=== PATIENT | female | born 1985 | race Caucasian/White ===

== ENCOUNTER 2025-05-02 12:02 | Emergency (ER) | payer BC, SELFPAY ==
[2025-05-02 12:04] VITALS: BP 131/77; BMI 41.7
[2025-05-02 12:21] LABS: % Basophils 1.5 % (0-2); % Eosinophils 2.4 % (0-6); % Immature Granulocytes 0.3 % (0-0.5); % Lymphocytes 44.7 % (20.5-51.1); % Monocytes 7.5 % (1.7-9.3); % Neutrophils 43.6 % (42.2-75.2); Absolute Basophils 0.2 10^3/uL (0-0.2); Absolute Eosinophils 0.3 10^3/uL (0-0.7); Absolute Lymphocytes 4.6 10^3/uL (1.2-3.4); Absolute Monocytes 0.8 10^3/uL (0.1-0.6); Absolute Neutrophils 4.5 10^3/uL (1.4-6.5); Hematocrit 40.8 % (37.0-47.0); Hemoglobin 13.2 g/dL (12.0-16.0); Mean Corp Hgb Conc. 32.4 g/dL (33.0-37.0); Mean Corpuscular Hgb 27.1 pg (27.0-31.0); Mean Corpuscular Volume 83.8 fL (81.0-99.0); Mean Platelet Volume 9.1 fL (7.4-10.4); Nucleated Red Blood Cells % 0 %; Platelet Count 429 10^3/uL (130-400); Red Blood Cell Count 4.87 10^6/uL (4.20-5.40); Red Cell Dist. Width 14.3 % (11.5-14.5); White Blood Cell Count 10.3 10^3/uL (4.8-10.8)
[2025-05-02 12:46] LABS: HCG, Serum Qualitative Screen Negative
[2025-05-02 12:56] LABS: ALT (SGPT) 18 U/L (0-35); AST (SGOT) 18 U/L (14-36); Albumin 4.4 g/dl (3.5-5.0); Alkaline Phosphatase 59 U/L (38-126); Blood Urea Nitrogen 13 mg/dl (7-17); Calcium 9.7 mg/dl (8.4-10.2); Carbon Dioxide 24 mmol/L (22-30); Chloride 107 mmol/L (98-107); Estimated Creatinine Clearance > 125 ml/min; Glucose 108 mg/dl (70-99); Lipase 90 U/L (23-300); Potassium 4.9 mmol/L (3.5-5.1); Sodium 139 mmol/L (135-145); Total Bilirubin 0.5 mg/dl (0.2-1.3); Total Protein 7.8 g/dl (6.3-8.2); eGFR > 60.00
[2025-05-02 13:00] VITALS: BP 113/65
[2025-05-02 13:05] LABS: Troponin I < 0.012 ng/ml
--- NOTE | 2025-05-02 13:21 | ED.GENMED ---
History of Present Illness
General
Chief Complaint: Chest Pain
Source: patient and spouse
Exam Limitations: none
Time Seen by Provider: 05/02/25 12:04
Nursing documentation reviewed up to this point in time: agreed with
History of Present Illness
History of Present Illness:
The patient is a 39-year-old female presenting with a headache and dizziness. She reports that the headache began earlier today and was accompanied by lightheadedness and a sense of faintness, impairing her ability to concentrate during a meeting.
She subsequently experienced nausea. The patient checked her blood pressure at home and noted it was elevated, which is unusual for her. She has a history of chest issues and has been evaluated by a document manager, with previous EKGs showing normal
results. She has not experienced headaches and dizziness with her previous symptoms. Her current symptoms include a mild headache with pressure but improved overall condition.
Per prior medical evaluation, cardiac issues have not been substantiated, and anxiety has been considered as a potential factor. The patient reports hydration practices are typically good, though she consumed slightly less water today. No new
medications or changes in current medications were reported. She occasionally uses ibuprofen for pain relief but did not specify the recent quantity.
Review of Systems
Review of Systems
Allergies reviewed?: Yes
All Other Systems: ROS reviewed and negative except as documented in HPI and ROS
Phy Exam
Physical Exam
Physical Exam:
GENERAL: Alert , in no apparent distress
EYE: pupils equal and reactive
NECK: Supple, no significant adenopathy.
ENT: o/p clr, mmm.
CARDIAC: Regular rate and rhythm .
LUNGS: Clear breath sounds bilaterally, no acute respiratory distress, no wheezes/rales/rhonchi
ABDOMEN: Soft, without focal tenderness, no r/g, no cvat
NEUROLOGICAL: Alert and oriented, no focal neuro deficits 5-5 upper and lower extremity strength normal sensation with palpating bilaterally normal finger-nose and [id number].
SKIN: Warm and dry, skin intact.
MUSCULOSKELETAL: No edema, well perfused.
PSYCH: Normal and appropriate interaction.
Scores
Heart Score for Chest Pain Patients
STEMI patient?: No
History: Slightly or Non-Suspicious
ECG: Normal
Age: </= 45 years
Risk Factors: 1 or 2 Risk Factors
Troponin: </= Normal Limit
Heart Score for Chest Pain Patients: 1
Heart Score Risk: 2.5% MACE over next 6 weeks
Course
Orders/Labs/Results
Orders:
Orders
05/02/25 12:07
EKG [Electrocardiogram (*1)] Urgent
Reason for Study: Chest Pain
05/02/25 12:08
EKG- Treatment ONCE
Test Result ONCE
05/02/25 12:13
Complete Blood Count/With Diff Urgent
Comprehensive Metabolic Panel Urgent
HCG, Serum Qualitative Screen Urgent
Lipase Urgent
Troponin I Urgent
05/02/25 13:00
CT Head W/o Iv Contrast Urgent
Comment:
Reason For Exam: SINGH, new, aphasia
Ketorolac [Toradol] 15 mg IV NOW STA
05/02/25 13:01
0.9% Sodium Chloride 1000 ml [Nss] 1,000 ml IV BOLUS
Abnormal Lab Results
05/02/25
12:13
MCHC 32.4 L g/dL
(33.0-37.0)
Plt Count 429 H 10^3/uL
(130-400)
Absolute Lymphs (auto) 4.6 H 10^3/uL
(1.2-3.4)
Absolute Monos (auto) 0.8 H 10^3/uL
(0.1-0.6)
Glucose 108 H mg/dl
(70-99)
05/02/25 12:13
05/02/25 12:13
Vital Signs
Initial and Last Documented VS:
Initial Vital Signs
Temp Pulse Resp BP Pulse Ox
98.2 F 84 16 131/77 98
05/02/25 12:04 05/02/25 12:04 05/02/25 12:04 05/02/25 12:04 05/02/25 12:04
Last Documented Vital Signs
Temp Pulse Resp BP Pulse Ox
98.2 F 79 13 127/74 96
05/02/25 12:04 05/02/25 14:12 05/02/25 14:12 05/02/25 14:12 05/02/25 14:12
MDM/Problems Addressed
MDM/Problems Addressed:
39-year-old female presenting with concerns of brief episode of chest pain as well as a right sided headache that been ongoing since this morning. Headache has been improving, did take ibuprofen. Headache is not typical for her it is not the worst
of life or abrupt in onset subarachnoid very unlikely CT scan was obtained for further assessment. Otherwise to medication to help with symptoms. CT head was performed that did not show any emergent process. Labs unremarkable troponin negative
ACS very unlikely stable for outpatient management return precautions given.
*Pulse Oximetry
SaO2: 98
Oxygen Mode of Delivery: Room air
*Critical Care Note
Total Time (30-74mins, 75-104mins- exclusive of procedures): Not Applicable
ED Attending Note
-
Portions of this chart may have been created with voice recognition software.� Occasional wrong word or��sound alike� substitutions may have occurred due to the inherent limitations of voice recognition software.
Discharge Plan
Departure
Patient Disposition: Home (Routine Discharge)
Date of Disposition: 05/02/25
Time of Disposition: 14:51
Patient with high blood pressure during this ER visit?: No
Condition: Good
Covid-19: Not Applicable
Discharge Problem:
Chest pain, Headache
Instructions: Chest Pain PCP Follow Up
Referrals:
NONE,* [Family Provider, Internal Medicine]
Activity Restrictions/Additional Instructions:
You came to the emergency department today with concerns of headache and chest pain. Here you have had a reassuring assessment and improvement of symptoms. Please follow closely with your document manager and primary care doctor. Return for any
worsening, new or concerning symptoms.
Interventions
Interventions:
*Risk Screen - Suicide Last Done: 05/02/25 12:04
*General Assessment Last Done: 05/02/25 12:04
*Neglect/Abuse Screening Last Done: 05/02/25 12:04
*ED- Fall Risk Assessment Last Done: 05/02/25 12:04
*ED COVID-19 Vaccine History Last Done: 05/02/25 12:04
ED- Cardiac Assessment Last Done: 05/02/25 12:27
Discharge Date and Time
Print Language: MALAGASY
[2025-05-02] MEDS: TORADOL 15 MG IV (13:22)
[2025-05-02] MEDS: NSS 1000 IV (13:23)
[2025-05-02 14:12] VITALS: BP 127/74
[2025-05-02 15:00] VITALS: BP 130/83
== END 2025-05-02 15:15 | disposition home or self-care (01) ==
LOC: EMR 12:02
PROVIDERS: EMERGENCY PHYSICIAN Emergency Medicine
DX: R07.89 Other chest pain (principal); R51.9 Headache, unspecified; R42 Dizziness and giddiness
CPT/HCPCS: 99284; 96374; 96361; 70450; 80053; 83690; 84484; 84703; 85025; 93005

== ENCOUNTER 2025-08-21 12:46 | Emergency (ER) | payer BC, SELFPAY ==
[2025-08-21 13:03] VITALS: BP 146/104
[2025-08-21 13:23] LABS: Hematocrit 40.2 % (37.0-47.0); Hemoglobin 12.8 g/dL (12.0-16.0); Mean Corp Hgb Conc. 31.8 g/dL (33.0-37.0); Mean Corpuscular Volume 83.4 fL (81.0-99.0); Nucleated Red Blood Cells % 0 %; Platelet Count 435 10^3/uL (130-400); Red Cell Dist. Width 13.4 % (11.5-14.5)
[2025-08-21 13:46] LABS: Troponin I < 0.012 ng/ml
[2025-08-21 14:08] LABS: ALT (SGPT) 17 U/L (0-35); AST (SGOT) 17 U/L (14-36); Albumin 4.4 g/dl (3.5-5.0); Alkaline Phosphatase 71 U/L (38-126); Blood Urea Nitrogen 11 mg/dl (7-17); Calcium 9.3 mg/dl (8.4-10.2); Carbon Dioxide 25 mmol/L (22-30); Chloride 106 mmol/L (98-107); Glucose 94 mg/dl (70-99); Lipase 78 U/L (23-300); Potassium 4.5 mmol/L (3.5-5.1); Sodium 139 mmol/L (135-145); Total Protein 7.8 g/dl (6.3-8.2); eGFR > 60.00
== END 2025-08-21 17:05 ==
LOC: EMR 12:46
PROVIDERS: Emergency Medicine
DX: Z53.21 Procedure and treatment not carried out due to patient leaving prior to being seen by health care provider (principal)
CPT/HCPCS: 80053; 83690; 84484; 85025; 93005

== ENCOUNTER 2025-08-24 11:35 | Emergency (ER) | payer BC, SELFPAY ==
[2025-08-24] VITALS (7 sets, daily range): BP systolic 93–152; BP diastolic 47–135; BMI 39.6
[2025-08-24 13:37] LABS: Hematocrit 37.5 % (37.0-47.0); Hemoglobin 12.3 g/dL (12.0-16.0); Mean Corp Hgb Conc. 32.8 g/dL (33.0-37.0); Mean Corpuscular Volume 81.5 fL (81.0-99.0); Nucleated Red Blood Cells % 0 %; Platelet Count 413 10^3/uL (130-400); Red Cell Dist. Width 13.4 % (11.5-14.5)
--- NOTE | 2025-08-24 13:54 | ED.GENMED ---
History of Present Illness
General
Chief Complaint: Chest Pain
Time Seen by Provider: 08/24/25 12:36
History of Present Illness
History of Present Illness:
see MMD
Phy Exam
Physical Exam
Physical Exam:
see MDM
Scores
Heart Score for Chest Pain Patients
STEMI patient?: No
History: Slightly or Non-Suspicious
ECG: Normal
Age: </= 45 years
Risk Factors: 1 or 2 Risk Factors
Troponin: </= Normal Limit
Heart Score for Chest Pain Patients: 1
Heart Score Risk: 2.5% MACE over next 6 weeks
Course
Orders/Labs/Results
Orders:
Orders
08/24/25 11:36
EKG [Electrocardiogram (*1)] Urgent
Reason for Study: Chest Pain
EKG- Treatment ONCE
08/24/25 13:23
Cardiac Monitoring- Treatment ONCE
08/24/25 13:26
Complete Blood Count/With Diff Urgent
Comprehensive Metabolic Panel Urgent
Lipase Urgent
Troponin I Urgent
08/24/25 13:52
CT Abd/pelvis W/wo Iv Cont Urgent
Reason For Exam: LUQ pain, tenderness, elevated BP
08/24/25 13:55
Pantoprazole [Protonix IV] 40 mg IV NOW STA
08/24/25 15:53
Diphenhydramine [Benadryl] 50 mg .ROUTE .STK-MED ONE
08/24/25 16:29
Diphenhydramine [Benadryl] 50 mg IV NOW STA
Abnormal Lab Results
08/24/25
13:26
MCH 26.7 L pg
(27.0-31.0)
MCHC 32.8 L g/dL
(33.0-37.0)
Plt Count 413 H 10^3/uL
(130-400)
Absolute Lymphs (auto) 3.6 H 10^3/uL
(1.2-3.4)
Chloride 108 H mmol/L
(98-107)
Glucose 123 H mg/dl
(70-99)
08/24/25 13:26
08/24/25 13:26
Vital Signs
Initial and Last Documented VS:
Initial Vital Signs
Temp Pulse Resp BP Pulse Ox
36.9 C 72 16 152/84 100
08/24/25 11:39 08/24/25 11:39 08/24/25 11:39 08/24/25 11:39 08/24/25 11:39
Last Documented Vital Signs
Temp Pulse Resp BP Pulse Ox
37.1 C 88 17 93/53 96
08/24/25 12:00 08/24/25 17:30 08/24/25 17:30 08/24/25 17:00 08/24/25 17:30
MDM/Problems Addressed
MDM/Problems Addressed:
Note:
CHIEF COMPLAINT(S)
Chest pain, neck pressure, headaches, and elevated blood pressure.
HISTORY OF PRESENT ILLNESS
The patient is a 39-year-old female presenting with episodes of chest pain, neck pressure, and headaches occurring over the past few weeks. She reports her blood pressure has recently been higher than usual, with readings approximately 158/80 mmHg
and 144/90 mmHg, compared to her typical range of 120-130/80 mmHg. She notes these episodes sometimes occur with exertion and can cause dizziness; however, there are instances when physical activity alleviates her symptoms. These episodes occur once
or twice daily, with increased intensity today, prompting her visit.
She describes the episodes as beginning with a feeling of pressure, accompanied by a warm sensation, followed by headaches and nausea. She experienced significant nausea and the sensation that she might vomit today. The patient reports a history of
heart palpitations, which have been managed effectively with propranolol. Despite a negative stress test and normal echocardiogram conducted 1-2 months ago, she has persistent concern about her cardiovascular health due to family history: her mother
had atrial fibrillation and congestive heart failure.
Previously, she had multiple workups, including CT scans, chest X-rays, and blood tests, which consistently showed elevated white blood cell counts. She was assessed by hematology, and malignancy was ruled out. She was recently diagnosed with
diabetes and has been on Mounjaro for management.
The patient suspects gastrointestinal involvement due to accompanying stomach pain, which worsens after eating, though she denies recent alcohol consumption. She is awaiting a prescription for hypertension management and was advised to avoid certain
foods that exacerbate her symptoms.
PAST MEDICAL AND SURIGICAL HISTORY
- High blood pressure (not currently on medication)
- Diabetes, on Mounjaro for management
- History of heart palpitations
CHRONIC MEDICAL CONDITIONS SIGNIFICANTLY AFFECTING CARE
- Diabetes
SOCIAL HISTORY
The patient denies regular alcohol use and has not mentioned smoking or drug use.
REVIEW OF SYSTEMS
- Cardiovascular: Chest pain, elevated blood pressure
- Neurological: Headaches
- Gastrointestinal: Nausea, stomach pain exacerbated by certain foods
PHYSICAL EXAM
- Nursing notes reviewed and vital signs reviewed.
GENERAL: Alert , in no apparent distress, mildly anxious/tearful
head: ncat
EYE: pupils equal and reactive
NECK: Supple, full painless ROM, notender
ENT: o/p clr, mmm.
CARDIAC: Regular rate and rhythm .no edema
LUNGS: Clear breath sounds bilaterally, no acute respiratory distress, no wheezes/rales/rhonchi
ABDOMEN: Soft, without focal tenderness, no r/g, no cvat, normal bowel sounds
NEUROLOGICAL: Alert and oriented, no focal neuro deficits, cn intact, 5/5 strength sensation intact
SKIN: Warm and dry, skin intact.
MUSCULOSKELETAL: No edema, well perfused. neg missy's sign
PSYCH: Normal and appropriate interaction.
PROBLEM LIST
Acute Problems:
- Chest pain
- Neck pressure
- Headaches
- Nausea
- Elevated blood pressure
Chronic Problems:
- elevated A1C
PLAN
1. Perform bloodwork to evaluate cardiac markers and other relevant tests.
2. Order imaging of the abdomen to assess for gallbladder or pancreatic issues.
3. Address any anomalies with prior imaging or records if needed.
4. Follow up on hypertension management and ensure medication availability.
DIFFERENTIAL DIAGNOSIS
The Differential Diagnosis includes, in no particular order and is not limited to:
1. Anxiety or panic disorder with somatic symptoms
2. Gastroesophageal reflux disease
3. Gallbladder disease (cholecystitis)
4. Hypertension-related complications
5. Atypical chest pain
6. Tension headache
7. Avascular causes of abdominal pain
8. Diabetes-related autonomic neuropathy
9. Esophageal spasm
10. Musculoskeletal chest pain
39 y /o F
2 years intermittent chest discomfort, which goes into neck/head, with nauesa
has had many ED visits for this, seen cards as recently as within month and had neg stress test
has had r/o PE before multiple times
her BP has been a little high at home the past few weeks and her PCP was going to call something in for her but it wasn't at the pharmacy
she feels overwhelemed because no one can figure out the cause of this
she is not worried about her heart, felt reassured by last cards visit
but she would like these episodes to stop
on exam she is mildly hypertensive 130/90s
she looks well
moving neck normally
heart/lungs clear
neuro intact
tender LUQ
ekg NSR no ischemic changes
given extensivew/u o rebel chest pain in the past, sypmtoms > 5 hours this am, trop neg, did not feel pt needed repeat trop
no PE rf
she is also having LUQ pain and has not had that worked up
tender LUQ
considered pheo with pt's labile bp and sypmtoms
she does have adrenal adenoma but no pheo
recommend endocrine f/u
ed/c home
*Pulse Oximetry
SaO2: 99
Oxygen Mode of Delivery: Room air
Patient hypoxic: no (100)
*Critical Care Note
Total Time (30-74mins, 75-104mins- exclusive of procedures): Not Applicable
ED Attending Note
-
Portions of this chart may have been created with voice recognition software.� Occasional wrong word or��sound alike� substitutions may have occurred due to the inherent limitations of voice recognition software.
Discharge Plan
Departure
Patient Disposition: Home (Routine Discharge)
Date of Disposition: 08/24/25
Time of Disposition: 17:21
Patient with high blood pressure during this ER visit?: Yes
Condition: Fair
Covid-19: Not Applicable
Discharge Problem:
Abdominal pain, Chest pain
Instructions: Abdominal pain in adults (DC), Chest Pain PCP Follow Up
Referrals:
Romi Forrester MD [Consulting Staff, Endocrinology] - Follow up in 5-7 days
UNKNOWN - PT DOES,NOT KNOW [Family Provider]
Activity Restrictions/Additional Instructions:
Not entirely sure the cause of your symptoms however you did have reassuring blood work and CAT scan shows a small growth on your adrenal gland but this is not liikely to cause sypmtoms
an wet machine tender can further evaluate your stress hormones to see if these are elevated
please follow up with your family doctor too
return fo rany concerns.
Interventions
Interventions:
*Risk Screen - Suicide Last Done: 08/24/25 11:40
*General Assessment Last Done: 08/24/25 12:39
*Neglect/Abuse Screening Last Done: 08/24/25 11:40
*ED- Fall Risk Assessment Last Done: 08/24/25 12:39
*ED COVID-19 Vaccine History Last Done: 08/24/25 12:39
*ED Influenza Vaccine History Last Done: 08/24/25 12:39
*Nursing Disposition Last Done: 08/24/25 17:55
ED- Cardiac Assessment Last Done: 08/24/25 12:39
Discharge Date and Time
Discharge Date/Time: 08/24/25 17:56
Print Language: KENYAN
[2025-08-24 14:17] LABS: Troponin I < 0.012 ng/ml
[2025-08-24 14:19] LABS: ALT (SGPT) 17 U/L (0-35); AST (SGOT) 17 U/L (14-36); Albumin 4.1 g/dl (3.5-5.0); Alkaline Phosphatase 76 U/L (38-126); Blood Urea Nitrogen 13 mg/dl (7-17); Calcium 9.3 mg/dl (8.4-10.2); Carbon Dioxide 22 mmol/L (22-30); Chloride 108 mmol/L (98-107); Estimated Creatinine Clearance > 125 ml/min; Glucose 123 mg/dl (70-99); Lipase 68 U/L (23-300); Potassium 4.7 mmol/L (3.5-5.1); Sodium 137 mmol/L (135-145); Total Protein 7.5 g/dl (6.3-8.2); eGFR > 60.00
[2025-08-24] MEDS: PROTONIX IV 40 MG IV (14:40)
[2025-08-24] MEDS: BENADRYL 50 MG IV (16:15)
== END 2025-08-24 17:56 | disposition home or self-care (01) ==
LOC: EMR 11:35
PROVIDERS: Physician Assistant; EMERGENCY PHYSICIAN Emergency Medicine
DX: R07.9 Chest pain, unspecified (principal); R10.9 Unspecified abdominal pain; R00.2 Palpitations; E11.9 Type 2 diabetes mellitus without complications; I10 Essential (primary) hypertension; D35.01 Benign neoplasm of right adrenal gland; Z79.85 Long-term (current) use of injectable non-insulin antidiabetic drugs; Z82.49 Family history of ischemic heart disease and other diseases of the circulatory system
CPT/HCPCS: 99284; 96374; 96375; 74178; 80053; 83690; 84484; 85025; 93005; Q9967